=== PATIENT | female | born 1985 | race Caucasian/White ===

== ENCOUNTER 2022-12-28 07:01 | Outpatient (OUT) | payer BC, SELFPAY ==
[2022-12-28 07:40] LABS: Basophils Percent Auto 0.6 % (0.2-2.0); Eosinophils Absolute Auto 0.1 10^3/uL (0.0-0.7); Eosinophils Percent Auto 2.7 % (0.9-7.0); Hemoglobin 12.3 g/dL (12.0-16.0); Immature Granulocytes Abs Auto 0.02 10^3/uL (0.00-0.03); Immature Granulocytes Pct Auto 0.4 % (0.0-0.5); Lymphocytes Absolute Auto 1.9 10^3/uL (1.2-3.8); Lymphocytes Percent Auto 35.2 % (20.5-60.0); Mean Corpuscular HGB Conc 33.2 g/dL (29.9-35.2); Mean Corpuscular Hemoglobin 29.2 pg (26.7-34.0); Mean Corpuscular Volume 87.9 fL (81.0-99.0); Mean Platelet Volume 12.1 fL (9.5-13.5); Monocytes Absolute Auto 0.6 10^3/uL (0.3-0.8); Monocytes Percent Auto 10.5 % (1.7-12.0); Neutrophils Absolute Auto 2.7 10^3/uL (1.4-6.5); Neutrophils Percent Auto 50.6 % (43.0-75.0); Platelet Count 175 10^3/uL (150-450); Red Blood Count 4.21 10^6/uL (4.20-5.40); Red Cell Distribution Width 12.9 % (11.0-15.0); White Blood Count 5.3 10^3/uL (4.0-11.0)
[2022-12-28 07:48] LABS: Estimated Average Glucose 105 mg/dL; Glycohemoglobin A1C 5.3 % (4.5-6.2)
[2022-12-28 08:36] LABS: Alanine Aminotransferase 27 U/L (14-59); Albumin Globulin Ratio 1.3; Albumin Level 4.1 g/dL (3.4-5.0); Alkaline Phosphatase 29 U/L (46-116); Anion Gap 9.3; Aspartate Amino Transferase 13 U/L (15-37); Bilirubin Total 0.6 mg/dL (0.2-1.0); Calcium 8.8 mg/dL (8.5-10.1); Carbon Dioxide 28.1 mmol/L (21.0-32.0); Chloride 104 mmol/L (98-107); Chol HDL Ratio 2.1; Cholesterol 161 mg/dL (<=200); Estimated GFR (African America >60 (>=60); Estimated GFR (Non-African Ame >60 (>=60); Globulin 3.2 g/dL; Glucose 115 mg/dL (74-106); HDL Cholesterol 76 mg/dL (40-60); Potassium 4.4 mmol/L (3.5-5.1); Sodium 137 mmol/L (136-145); Thyroid Stimulating Hormone 0.891 uIU/mL (0.358-3.740); Total Protein 7.3 g/dL (6.4-8.2); Triglycerides 43 mg/dL (<=150); VLDL CHOLESTEROL 8.6 mg/dL
== END 2022-12-28 07:02 | disposition home or self-care (01) ==
LOC: LAB 07:05
PROVIDERS: PCP Family Medicine; Visit Provider Family Medicine
DX: Z00.00 Encounter for general adult medical examination without abnormal findings (principal)
CPT/HCPCS: 36415; 80053; 80061; 83036; 84443; 85025

== ENCOUNTER 2023-02-20 07:44 | Outpatient (OUT) | payer BC, SELFPAY ==
--- NOTE | 2023-02-20 07:46 | US_ITS ---
The [address] [address] Patient Name: JUANIS VILLEDA MRN: [id number] date: 1985 Sex: F Assigned Patient Location: Current Patient Location: US Accession/Order Number: [id number] Exam Date: 02/20/2023 07:48 Report Date: 02/20/2023 09:29 At the request of: TONEY SOUZA Procedure: US pelvis transvaginal PROCEDURE: US pelvis transvaginal, 02/20/2023 7:48 AM EDT CLINICAL INDICATIONS: Abnormal uterine bleeding. 2 para 2. LMP 01/25/2023. COMPARISON: None. TECHNIQUE: Transabdominal, transvaginal pelvic sonogram, ruelas-scale, color, and spectral evaluation. FINDINGS: Uterus: 8.2 x 5.4 x 5.0 cm. Endometrial echo complex 1.1 cm. Normal uterine sonographic morphology without focal abnormality. Right ovary: 3.3 x 2.2 x 2.0 cm, volume 8 mL. Normal sonographic morphology. Left ovary: 5.4 x 3.1 x 2.9 cm, volume 25 mL. A 2.2 x 1.9 x 1.7 cm complex cyst with thickened wall, crenulated margin, low level internal echoes is identified, mild peripheral vascularity. There is trace pelvic free fluid. US/US pelvis transvaginal IMPRESSION: 1. Normal uterine and right ovarian sonographic morphology. 2. Complex 2.2 cm left adnexal cyst. Complex corpus luteal cyst is favored. 6-12 week follow-up sonography needed. 3. Trace pelvic free fluid. Electronically authenticated by: TRAVIS ORO Date: 02/20/2023 09:29
== END 2023-02-20 07:45 | disposition home or self-care (01) ==
LOC: US 07:44
PROVIDERS: PCP Family Medicine; Visit Provider Obstetrics & Gynecology
DX: N92.0 Excessive and frequent menstruation with regular cycle (principal); N83.292 Other ovarian cyst, left side
CPT/HCPCS: 76830

== ENCOUNTER 2023-07-30 07:55 | Outpatient (OUT) | payer BC, SELFPAY ==
--- NOTE | 2023-07-30 07:56 | VEIN_ITS ---
Patient Name: JUANIS VILLEDA MR#: [id number] : 1985 Exam Date: 07/30/2023 Ordering Doctor: DR BRIANNA TUBBS M.D. RADIOLOGY REPORT PROCEDURE: VC EXT VENOUS REFLUX PAULA LMTD COMPARISON: None. INDICATIONS: I83.813 Bilateral painful varicose veins TECHNIQUE: Duplex imaging of the lower extremity to assess the deep and superficial venous system for the presence of deep or superficial venous incompetence and to document the location and severity of disease. The study includes evaluation of the great saphenous vein (GSV), anterior accessory saphenous vein (AASV) and small saphenous vein (SSV). Patient scanned in reverse Trendelenburg and standing. FINDINGS: RIGHT LOWER EXTREMITY: Saphenofemoral Junction Reflux: Yes 8.0mm 2.1 sec GSV: Diam (mm) Reflux/ Time (sec) Proximal Thigh 6.2 Yes 0.8 Mid Thigh 4.6 Yes 0.5 Distal Thigh 4.3 Yes 0.5 Prox Calf 2.7 Yes 0.6 Mid Calf N/A Saphenopopliteal Junction Reflux: 2.6mm No SSV: Proximal Calf 1.3 N/A Mid Calf 2.3 AASV: Not present Proximal Thigh Mid Thigh Distal Thigh Thrombi: No acute or chronic thrombus visualized Compressibility: Normal Flow: Normal Preforator: No perforators visualized. Tech Note: Incompetent GSV. Patent varicose vein mid/med thigh 2.7mm with 1.1s reflux. LEFT LOWER EXTREMITY: Saphenofemoral Junction Reflux: Yes 5.9 mm 0.6 sec GSV: Diam (mm) Reflux/Time (sec) Proximal Thigh 4.7 No Mid Thigh 2.4 No Distal Thigh 1.4 No Prox Calf N/A Mid Calf N/A Saphenopopliteal Junction Relux: 6.4 mm Yes 1.1 SSV: Proximal Calf 6.0 Yes 1.0 Mid Calf 2.1 Yes AASV: Not present Proximal Thigh Mid Thigh Distal Thigh Thrombi: No acute or chronic thrombus visualized Compressibility: Normal Flow: Normal Paleobotanist: Dist/med calf 2.3mm with 0s reflux. Tech Note: Incompetent SSV. CONCLUSION: 1. Mild dilation and reflux involving the right great saphenous vein and left small saphenous vein. Dictated by: Trino Guevara M.D. on 07/30/2023 at 08:55 Approved by: Trino Guevara M.D. on 07/30/2023 at 10:44
--- NOTE | 2023-07-30 07:56 | VEIN_ITS ---
Patient Name: JUANIS VILLEDA MR#: [id number] : 1985 Exam Date: 07/30/2023 Ordering Doctor: DR BRIANNA TUBBS M.D. RADIOLOGY REPORT PROCEDURE: [facility] - OFFICE VISIT INITIAL COMPARISON: None. PROGRESS NOTES: [age] year old female who presents with a 7 year history of bulging dilated veins, leg pain, throbbing, swelling, heaviness. The patient's left leg symptoms are worse than the right. There has been a progression of symptoms over time. This increases with prolonged leg dependency. The patient describes an improvement with rest and elevation. The patient denies any signs and symptoms to suggest arterial ischemia. The patient describes a family history of varicose veins on maternal and paternal side. The patient has drinking and smoking history of occasional alcohol consumption; no tobacco use. Patient has a past medical history significant for : None other than current symptoms described above. The patient denies a history of deep venous thrombus or pulmonary embolus. See separate history and physical for medication list. No prior treatment for varicose or spider veins. Occasional use of compression stockings. After review of nurse notes, history and physical exam I discussed at length the pathophysiology of venous hypertension and possible treatments, therapies and strategies available. We discussed at length the importance of elevating the lower extremities above the level of the heart, increased physical activity and compression stocking use. Ultrasound venous reflux study performed today was discussed at length with the patient. The report demonstrates mildly dilated an incompetent proximal right great saphenous vein and proximal left small saphenous vein.. PHYSICAL EXAM: The right leg demonstrates several superficial varicosities varicosities, no significant spider veins, no ulceration, no edema, no skin discoloration. The left leg demonstrates several superficial varicosities, a few spider veins, no ulceration, no edema, no skin discoloration. Both thighs, legs and feet were symmetrically warm to the touch. Good posterior tibial and dorsalis pedis pulses were present bilaterally. VEIN/VC Facility EST Comprehensive IMPRESSION: 1. Mild bilateral lower extremity venous insufficiency 2. Several lower extremity varicose veins 3. No significant lower extremity subcutaneous edema 4. No flow significant arterial disease 5. CEAP: C2, AP, , NV PLAN: 1. Continued use of compression stockings 2. Elevated legs and increased physical activity symptomatic relief 3. Daily use of compression stockings with re-evaluation of symptoms by the patient in 2-3 months. Patient will contact us if treatment is desired at that time. Nurse notes, history and physical were reviewed and confirmed, see attached forms. The nurse was present throughout the physical exam and consultation Dictated by: Trino Guevara M.D. on 07/30/2023 at 10:44 Approved by: Trino Guevara M.D. on 07/30/2023 at 10:52
== END 2023-07-30 07:56 | disposition home or self-care (01) ==
LOC: VC 07:55
PROVIDERS: PCP Radiology Diagnostic Radiology; Visit Provider Radiology Diagnostic Radiology
DX: I83.813 Varicose veins of bilateral lower extremities with pain (principal)
CPT/HCPCS: 93970; G0463

== ENCOUNTER 2023-12-07 06:28 | Outpatient (OUT) | payer BC, SELFPAY ==
--- OUTSIDE RECORDS SUMMARY | 2023-12-07 06:33 | XMS_ITS | CCD ---
Author Organization [facility] Care Team Providers Care Make Up Girl Name Role Phone BRIANNA MARCUS Unavailable Unavailable HEIDI WHALEY Unavailable Unavailable ROSEANNE, DR REED Admitting Unavailable ROSEANNE, DR REED Attending Unavailable ROSEANNE, DR REED Primary Care Unavailable West, DR Reed Consulting Unavailable ROSEANNE, DR REED Consulting Unavailable CHRIS KILLIAN Admitting Unavailable CONSTANTIN, CHRIS Attending Unavailable CHRIS KILLIAN Consulting Unavailable Brianna Marcus Attending Unavailable Brianna Marcus Primary Care Unavailable Problems Active Problems Problem Classification Problem Date Documented Da te Episodic/Chronic Administrative/social admission (4 sources) Encounter for pre-employment examination; Translations: [ENCOUNTER FOR PRE-EMPLOYMENT EXAM] Onset: 01-09-2022 Episodic Thyroid disorders (4 sources) Nontoxic single thyroid nodule; Translations: [NONTOXIC SINGLE THYROID NODULE] Onset: 10-17-2021 Chronic Past or Other Problems Problem Classification Problem Date Documented Da te Episodic/Chronic Unclassified (1 source) Family history of other specified conditions; Translations: [Family history of other specified conditions] Onset: 06-28-2017 Episodic Results Test Name Value Interpretation Reference Range Facility Outside [facility] 10-14-2023 Outside Records [id number]-10[facility]23 Outside [facility] [id number] Outside Records [id number]#[facility] 02-01-2023 Outside Records [id number]#1.00OTGTIFF Normal [facility] Office/Clinic Noteon 023 Office/Clinic Note Patient: JUANIS VILLEDA Age: 37 years Sex: FEMALE : 1985 Associated Diagnoses: Adult general medical exam Author: Brianna Marcus MD A History of Present Illness 37-year-old female presents today with annual physical exam. She recently had blood work which was reviewed by her employer. She is currently not on any medications. She remains active. 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 Eats well. Sleeps well. 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 Otherwise no other issues or concerns. Chart was reviewed. Review of Systems Constitutional: Negative. Ear/Nose/Mouth/Throat: Negative. Respiratory: Negative. Cardiovascular: Negative. Gastrointestinal: Negative. Musculoskeletal: Negative. Integumentary: Negative. Neurologic: Negative. Psychiatric: Negative. Health Status Allergies: Allergic Reactions (Selected) No known allergies, Allergies (1) Active Severity Reaction No known allergies None Documented Current medications: (Selected) Documented Medications Documented Multi Vitamin+: See Instructions, 2 gummie tabs po daily, 0 Refill(s), Home Medications (1) Active Multi Vitamin+ See Instructions Problem list (past medical history): Active Problems (1) Denied Physical Examination VS/Measurements Vital Signs 01/28/2023 9:20 EDT Peripheral Pulse Rate 90 bpm Systolic Blood Pressure 102 mmHg Diastolic Blood Pressure 78 mmHg SpO2 99 % , Measurements from flowsheet : Measurements 01/28/2023 9:20 EDT Height 162.56 cm Height/Length Measured (inches) 64 in Weight 60.60 kg Weight Measured (lbs) 133.6 lb Body Mass Index 22.93 kg/m2 [place] Body Weight Calculated 54.7 kg BSA Measured 1.65 m2 General: Alert and oriented, No acute distress. HENT: Normocephalic, Tympanic membranes are clear, Normal hearing. Neck: Non-tender, No carotid bruit, No jugular venous distention, No lymphadenopathy. Respiratory: Lungs are clear to auscultation, Respirations are non-labored, Breath sounds are equal. Cardiovascular: Normal rate, Regular rhythm, No murmur, Good pulses equal in all extremities. Gastrointestinal: Soft, Non-tender, Non-distended, Normal bowel sounds, No organomegaly. Musculoskeletal: Normal range of motion, Normal strength, No tenderness, Normal gait. Neurologic: Alert, Oriented, Normal sensory, Normal motor function, No focal deficits. Cognition and Speech: Oriented, Speech clear and coherent, Functional cognition intact. Psychiatric: Cooperative, Appropriate mood & affect. Impression and Plan Diagnosis Adult general medical exam (CNE30-NW Z00.00). Plan: Chart was reviewed. Discussed safety issues appropriate for age. Encouraged to remain active. No other changes made. Continue follow-up yearly.. Orders Orders Evaluation and Management: 11533 Periodic preventive care, estab pt; 18-39 years (Order): 01/28/2023 9:15 EDT, Qty: 1, Adult general medical exam. [Electronically Signed on: 01/28/2023 10:03 EDT] Brianna Marcus MD [Verified on: 01/28/2023 10:03 EDT] Brianna Marcus MD [facility] Outside Record[facility] 12-31-2022 Outside Records [id number]#1.00OTGTIFF [facility] QUANTIFERON TB GOLD PLUSon 0 01-13-2022 QuantiFERON Criteria Comment Normal [facility] Comment on above: Result Comment: QuantiFERON-TB Gold Plus is a qualitative indirect test for M tuberculosis infection (including disease) and is intended for use in conjunction with risk assessment, radiography, and other medical and diagnostic evaluations. The QuantiFERON-TB Gold Plus result is determined by subtracting the Nil value from either TB antigen (Ag) value. The Mitogen tube serves as a control for the test. Performed By: #### Q NTTB #### [facility] [address] [place] [address] Dr. Bryce Hillman QuantiFERON Incubation Incubation performed. Normal [facility] Comment on above: Performed By: #### QNTTB #### [facility] [address] [place] [address] Dr. Bryce Hillman QuantiFERON Mitogen Value >10.00 Normal [facility] Comment on above: Performed By: #### QNTTB #### [facility] [address] [place] [address] Dr. Bryce Hillman QuantiFERON Nil Value 0.64 IU/mL Normal [facility] Comment on above: Performed By: #### QNTTB #### [facility] [address] [place] [address] Dr. Bryce Hillman QuantiFERON TB1 Ag Value 0.49 IU/mL Normal [facility] Comment on above: Performed By: #### QNTTB #### [facility] [address] [place] [address] Dr. Bryce Hillman QuantiFERON TB2 Ag Value 0.41 IU/mL Normal [facility] Comment on above: Performed By: #### QNTTB #### [facility] [address] [place] [address] Dr. Bryce Hillman QuantiFERON-TB Gold Plus Negative Normal Negative [facility] Comment on above: Result Comment: No response to M tubercu losis antigens detected. Infection with M tuberculosis is unlikely, but high risk individuals should be considered for additional testing (ATS/IDSA/CDC Clinical Practice Guidelines, 2017). The reference range is an Antigen minus Nil result of <0.35 IU/mL. Chemiluminescence immunoassay methodology Performed By: #### Q NTTB #### [facility] [address] [place] [address] Dr. Bryce Hillman HEPATITIS B SURFACE ANTIBODY , QUANTon 01-10-2022 Hepatitis B Surf AB Quant 25.9 mIU/mL Normal Immunity>9.9 [facility] Comment on above: Result Comment: Status of Immunity Anti- HBs Level Inconsistent with Immunity 0.0 - 9.9 Consistent with Immunity >9.9 Performed By: #### H EPBSRF #### [facility] [address] [place] [id number] [address] Bryce Hillman MMR IMMUNITYon 01-10-2022 Mumps Abs, IgG <9.0 Critically low Immune >10.9 [facility] Comment on above: Result Comment: Negative <9.0 Equivocal 9.0 - 10.9 Positive >10.9 A positive result generally indicates past exposure to Mumps virus or previous vaccination. Performed By: #### M MRIMMU #### [facility] [address] [place] [address] Dr. Bryce Hillman Rubella Antibodies, IgG <0.90 Critically low Immune >0.99 [facility] Comment on above: Result Comment: Non-immune <0.90 Equivocal 0.90 - 0.99 Immune >0.99 Performed By: #### M MRIMMU #### [facility] [address] [place] [address] Dr. Bryce Hillman Rubeola Ab, IgG 26.4 AU/mL Normal Immune >16.4 [facility] Comment on above: Result Comment: Negative <13.5 Equivocal 13.5 - 16.4 Positive >16.4 Presence of antibodies to Rubeola is presumptive evidence of immunity except when acute infection is suspected. Performed By: #### M MRIMMU #### [facility] [address] [place] [address] Dr. Bryce Hillman VARICELLA IGG ABon Varicella Zoster IgG 758 index Normal Immune >165 [facility] Comment on above: Result Comment: Negative <135 Equivocal 135 - 165 Positive >165 A positive result generally indicates exposure to the pathogen or administration of specific immunoglobulins, but it is not indication of active infection or stage of disease. Performed By: #### V ARCEL #### [facility] [address] [place] [address] Dr. Bryce Hillman US THYROID FN ASP BXon 10-25 US THYROID FN ASP BX Begin Addendum #1 COLLECTED DATE/TIME: 10/20/2021, 16:08 EDT Final Diagnosis Report for [facility] [place] (A/B) RIGHT THYROID MID LOBE NODULE, ULTRASOUND GUIDED FINE NEEDLE ASPIRATION - BENIGN COMMENT: The specimen consists of colloid, occasional groups of bland follicular cells, and rare groups of Hurthle cells, consistent with benign colloid nodule. 10/23/[address] Marcus. Verified with Carlos Eduardo 10/24/2021 that report was present in the office. Original Report EXAMINATION: US THYROID FN ASP BX HISTORY: Thyroid nodule COMPARISON: No relevant comparison available. TECHNIQUE: After obtaining informed consent, ultrasound-guided fine needle aspiration was performed in the usual sterile manner. FINDINGS: IMAGING: Ultrasound. BIOPSY NEEDLE: 23-gauge 1.5 inch LOCATION: 1.2 cm right thyroid nodule SPECIMEN TYPE: 3 fine-needle aspirates. LOCAL ANESTHETIC: 3 cc 1% buffered lidocaine without epinephrine. COMPLICATIONS: None. LABORATORY: Prepared slide smears and washings for cell block evaluation. OTHER: Negative. PATHOLOGY: Pending. An addendum will be added when results are available. IMPRESSION: 1. Uneventful ultrasound guided fine needle aspiration (FNA) right thyroid nodule 2. Pathology results are pending. Normal [facility] 10-24-2020 L ------- Specimen: [id number] Received: 10/25/20 Status: RAMOS Al Num: [id number] Spec Type: Surgical Subm Dr: Brianna Marcus MD Tissues: A Skin-Other than Cyst, tag, debridement or plastic repair (BACK) Procedures: HE Stain, Gross/Micro L4 Patient Age/Sex Location Account Attending Physician Juanis Villeda Leonid 35/F [facility] [id number] Brianna Marcus MD SPEC NUM: [id number] RECD: 10/25/20 STATUS: RAMOS AL NUM: [id number] BOB: 10/24/20 [facility] [address]: Brianna Marcus MD ENTERED: 10/25/20 [facility] DR: Jorge Spain SPEC TYPE: Surgical DEPT: MAG GARCIA ORDERED: HE Stain, Gross/Micro L4 ORDERED: HE Stain, Gross/Micro L4 Pathological Diagnosis Skin, back, excision: - Intradermal nevus, extending to biopsy edges Clinical Information Irritated lesion on back Gross Description Received in formalin labeled with the patient's name, number and skin is a 1 cm cochran skin shave excised to a maximum depth of less than 0.1 cm. The skin surface demonstrates a 0.7 cm cochran, slightly raised and lobulated papule. The resection margin is inked blue and the fragment is serially sectioned. Entirely submitted in one cassette labeled A1. (SM/JS) Microscopic Description One glass slide with H E stained material has been examined. The microscopic findings support the above pathologic diagnosis. [id number] Specimen: [id number] Received: 10/25/20 Status: RAMOS Al Num: [id number] Spec Type: Surgical Subm Dr: Brianna Marcus MD Tissues: A Skin-Other than Cyst, tag, debridement or plastic repair (BACK) Procedures: HE Stain, Gross/Micro L4 Patient: Juanis Villeda [id number] (Continued) Signed (signature on file) Gus Hudson MD 10/28/20 [id number] [facility] CNPIngrid 07-13-2017 CNPN Telephone (VARINDER) ------RONALJUANIS ([id number]) 1985 FDate Time Provider Department07/13/17 ISMAEL GOODSON GC During your visit today, we recorded the following information about you:Carmelo Ellis Gc Assist 07/13/2017 8:41 AM SignedThe patient was contacted per the request of DERRICK Davis. The patienthad called inquiring about the status of her pre-authorization for genetictesting. At the time of the call, the pre-authorization was still pending.Ismael requested that I inquire if the patient would like to move forward withtesting even though the authorization is pending. Per Ismael's note, themaximum cost for the genetic test is $258 which was conveyed to the patient.The patient would like to move forward with testing and is aware that if herinsurance does not approve genetic testing, that she may be billed $258 for thetest.Carmelo Ellis MSGenetic Counselor Sloan Goodson MS [facility] 07/27/2017 10:38 AM SignedI called and left a detailed message (permission granted at her priorappointment) on Juanis's voicemail regarding our request for insuranceauthorization for SCA6 testing. Despite our attempt to appeal, her insurancecompany is denying authorization for this analysis. This means that Juaniswill be responsible for the cost of testing ($258) out of pocket. We havealready discussed that Juanis would like to proceed with this testingregardless of insurance authorization, as confirmed by JASWANT Rodríguez, on07/13/17. I will request that Almas DNA be sent to [facility] foranalysis. I will notify Juanis when results are received. I encouraged Juanisto contact me if she had any questions.Ismael Goodson MS, Paz Goodson MS CGC 07/27/2017 10:53 AM SignedAddended by: ISMAEL GOODSON CGC on: 07/27/2017 10:53 AM Modules accepted: OrdersAllergies As of Date: 07/13/2017(No Known Allergies)Date Reviewed: 05/06/2005Reviewed by: Carli More (Rn) FRANCINE Ferris - ReviewedReason for Visit: Insurance Authorization [[id number]]Primary Visit Diagnosis:Family history of spinocerebellar ataxia [Z84.89]Order(s):DNA AND RNA FOR CLINICAL TESTING [SQNUCADD] Order #: [id number] List As Of Date: 07/13/2017(None) Status:Closed by CARMELO GIPSON GC on 07/13/17 [facility] CNOVon 06-28-2017 CNOV Office Visit (GMIT) -----JUANIS VILLEDA ([id number]) 1985 FDate Time Provider Department06/28/17 12:00 PM ISMAEL GOODSON) GMIT During your visit today, we recorded the following information about you:Ismaeljim Goodson, [facility] 07/02/2017 9:43 AM SignedPatient Name and confirmed at initiation of visit.Dr. Brianna Marcus requested a genetic consultation for Juanis Villeda, a31 year old female, for discussion of her family history of spinocerebellarataxia type 6. Prior to the visit, the genetic counselor reviewed records inthe patient's EMR including, but not limited to, available clinic notes,physician consultations, laboratory tests, imaging reports, cardiac studies,and other investigations and evaluations. The genetic counselor also reviewedthe case with Dr. Whaley as needed prior to seeing the patient.The patient was accompanied to today's appointment by her , Erwin.HISTORY OF PRESENT CONDITION:Juanis Villeda presents today to discuss her family history ofspinocerebellar ataxia, type 6, recently diagnosed in her father. In reviewingsigns and symptoms of SCA6, Juanis denies any history of all of the following:ataxia, dysarthria, nystagmus, upper limb incoordination, intention tremor,dysphagia, diplopia, hyperreflexia, dystonia, and blepharospasm.PERTINENT PAST MEDICAL AND SURGICAL HISTORY INCLUDES:Past medical history:- bone cysts in jawPast surgical history:- LASIK- bone cyst removal left heelRELEVANT EVALUATIONS TO DATE:n/aPREVIOUS GENETIC TESTING:None.SOCIAL HISTORY:Lives in [place], [place] with her and two daughters.Employment: [employer] and alcohol use: tobacco- denied; EtOH- beer with dinner daily; illicitdrug use- denied.FAMILY HISTORY:- Patient's ethnicity: Maternal - Maltese, ; Paternal - Uruguayan.- Partner's ethnicity: not applicable.- No known -Sao Tomean, Mediterranean, /Lebanese,Yemeni-Canadia n/Cajun, or Ashkenazi Temple ancestry unless noted above.- Parental consanguinity: Shonna 4 generation pedigree was collected [facility]. Pertinent findings are noted below.Children: two daughters, ages 4yo and 1yo, both healthy. One first trimesterSAb..Full siblings: one brother, age 26, healthy.Half siblings: none.Parental losses: none reported.Mother: 55 years old. Healthy.Maternal aunts and their children: none.Maternal uncles and their children: one uncle, age 50, healthy; he has ahealthy 15yo daughter.Maternal grandmother: age 83; h/o dementia (onset in her late 60s).Maternal grandfather: age 84, no known health problems.Father: 56 years old. Molecularly confirmed spinocerebellar ataxia, type 6.Paternal aunts and their children: three half aunts- 1) daughter ofgrandmother, age 50, healthy; she has two healthy daughters and had 3 SAbs's.2) daughter of grandfather, gait issues. 3) daughter of grandfather, healthy.Paternal uncles and their children: three half uncles, sons of grandfather, noinformation known.Paternal grandmother: age 76, healthy.Paternal grandfather: in his 50s/60s; h/o gait abnormality.The remainder of Juanis's reported family history is negative for known orsuspected genetic disease, defects, malformation syndromes, chromosomaldisorders, metabolic disorders, developmental delay, mental retardation,infertility, recurrent loss, stillbirth, unexplained infant ,and consanguinity.GENETIC COUNSELING RISK ASSESSMENT AND DISCUSSION:Juanis Villeda is a 31 year old female with a family history ofspinocerebellar ataxia type 6 (SCA6). We discussed the natural history andgenetic etiology of SCA6 in detail. SCA6 is characterized by adult-onset,slowly progressive cerebellar ataxia, dysarthria (slurred or slow speech), andnystagmus (condition in which the eyes make repetitive, uncontrolled movementswhich often result in reduced vision and depth perception and can affectbalance and coordination). The range in age of onset is from 19 to 71 years,with the mean age of onset being between 43 and 52 years. Age of onset andclinical presentation can vary even within the same family. Initial symptoms inabout 90% of individuals with SCA6 include gait unsteadiness, stumbling, andimbalance; the other 10% of individuals present with dysarthria. Symptoms areslowly progressive. Eventually, individuals with SCA6 develop gait ataxia,upper limb incoordination, intention tremor, and dysarthria. Dysphagia andchoking are common. Diplopia (or double vision) occurs in about 50% ofindividuals with SCA6. Some people experience other visual disturbances relatedto difficulty fixating on moving objects; the vast majority of people with KHA3vctxweyjau nystagmus. Hyperreflexia (or overactive reflexes) occurs in up to50% of individuals. Up to 25% of individuals experience dystonia (persistent orintermittent muscle contractions causing abnormal, often repetitive, movements,postures, or both) and/or blepharospasm (uncontrolled contraction of themuscles in the eyelids). Cognitive impairment is not associated with SCA6, andlifespan is not shortened. Once the diagnosis of SCA6 is made, individualsshould consider the following evaluations: neurologic examination, MRI of thebrain, swallow study, and evaluation with physical therapy.Management/treatmen t of SCA6 is supportive and symptom-based; there is no curefor SCA6.?Our genes are like instructions that tell our body how to form and function. Wehave two copies of each gene in our body- we inherit one copy from our motherand one copy from our father. Changes in our genes are known as mutations;mutations can be benign or disease-causing (pathogenic). Pathogenic mutationsin the OZWYE0O gene are associated with SCA6. SCA6 is known as a triplet repeatdisorder. Within the TUHJW2O gene, there is an area with a repetitiveANDquot;CAGANDquo t; sequence. It is normal for there to be variation in the numberof CAG repeats between individuals. However, if the number of CAG repeatscrosses a certain threshold, individuals may develop symptoms of SCA6. Forexample, individuals with 18 or less CAG repeats in the FEUVV7Z gene are saidto have a normal allele (or copy of the gene) and show no signs of SCA6.Individuals with 19 CAG repeats are said to have an ANDquot;intermediateANDquot ; orANDquot;mutable normal alleleANDquot; as individuals tend to be asymptomatic butare at risk to pass an expanded allele on to their offspring. Individuals vdno46-56 CAG repeats are expected to develop symptoms of SCA6 at some point duringtheir life. Juanis's father's results show that he has 22 CAG repeats in theCACNA1 gene, confirming his diagnosis of SCA6; 22 CAG repeats is considered marisa the most common pathogenic allele for SCA6. The age of onset is thought marisa inversely correlated to the number of repeats and affected individual has;the greater the number of repeats, the earlier the age of onset. However, it isimportant to keep in mind that the age of onset, severity, specific symptoms,and progression of the disease are variable and cannot always be predicted bythe family history of CAG repeat size.?SCA6 is inherited in an autosomal dominant manner. This means that an expandedCAG repeat (20 or more repeats) in one copy of the GGIFP0A gene is enough tocause symptoms of SCA6. Individuals with SCA6 have a 50% chance to pass thecondition on to each of their children; as such, there is a 50% chance thatJunais has inherited her father's expanded XSCFI2K allele. Juanis has electedto proceed with predictive testing for spinocerebellar ataxia type 6.We also discussed Juanis's maternal grandmother's history of Alzheimer'sdisease, with onset of dementia in her late 60s. We reviewed that 75% of casesof Alzheimer's disease are sporadic, while 25% are familial. Of the 25% ofcases that are considered to be familial, 95% are known as late onset (withsymptoms beginning after age 60-65) and only 5% are considered to be earlyonset (with symptoms beginning before age 65). Juanis's grandmother'sdiagnosis in her late 60s falls right on the cusp of early versus late onset.The general population risk of Alzheimer's disease throughout the lifetime is10%. For someone with a family history of Alzheimer's disease in a first degreerelative, the lifetime risk is increased to 20-25%; therefore, Almasmother's risk for Alzheimer's disease is 20-25%. If Juanis's mother isinterested in learning more about her risk for early onset Alzheimer's disease,she is encouraged to meet with a genetic counselor as some forms of early onsetAlzheimer's disease can be inherited from an affected parent. There is nogenetic testing currently available that can determine whether someone with afamily history of late onset Alzheimer's disease will develop symptoms of thecondition in their own lifetime.FOLLOW-UP PLAN:1) I will submit a request for pre-authorization for SCA6 testing; the cost ofthis testing is $258 dollars. I will notify Juanis when a response isreceived. Regardless of outcome of pre-authorization request, Juanis intendsto proceed with this testing. She states that a detailed message can be left onher voicemail.2) An order for DNA extraction has been placed for testing.EDUCATIONAL INFORMATION SUPPLIED TO PATIENT: None.The patient was seen for a total of 48 minutes, greater than 50% of which wasspent [id number] counseling. This plan is being carried out per Dr. Whaley'srecommendations. This note will also be sent to the referring provider andpatient.Ismael Goodson MS, CLicediamond children's medical center Genetic CounselorEPIC CC:Dr. Alisa Luke, medical secretaryCC:Juanisaicha Villeda56[address] [facility] [address]Tlnqkanushka Marcus MD[address] [facility] [place] [address]Msnmrrigi Provider: BRIANNA MARCUS [[id number]]Allergies As of Date: 06/28/2017(No Known Allergies)Date Reviewed: 05/06/2005Reviewed by: Carli More (Rn) FRANCINE Ferris - ReviewedPrimary Visit Diagnosis:Family history of spinocerebellar ataxia [Z84.89]Order(s):DNA EXTRACTION (BUFFY COAT) [SQNUCBUF] Order #: [id number] FUTUREProblem List As Of Date: 06/28/2017(None)Follow-up and Disposition History RecordedEncounter Number: [id number] Status:Closed by ISMAEL GOODSON CGC on 07/02/17 Normal [facility] DNA Extraction (Buffy)on DNA Extration BC (NOTE) Normal [facility] Comment on above: Result Comment: This specimen was receiv ed and successfully processed for future DNApurification should molecular testing be needed. Specimens will beavailable for 3 years from the date of collection.To order testing on this specimen for [facility] patients,please place an [facility] order for DNA and RNA Extractions for ClinicalTesting (SQNUCADD). To order testing for [facility] the[facility], please request DNA and RNA Extraction forClinical Testing, order code [id number].If additional paperwork is required for testing, please sendcompleted forms via secure email to . Performed By: #### N UCBUF ####[facility], [place] [phone] DNA,RNA Ext Clin Teston 06-08 DNA,RNA Ext Clin Test (NOTE) Normal [facility] Comment on above: Result Comment: Required Specimen: DNAOr iginal Specimen Type: PERIPHERAL BLOODOriginal Specimen Collection: 06/28/17Total Yield (ug):56.1Extraction Method: GENTRAComments: The entire specimen will be sent for the requested testing. Performed By: #### N UCADD ####[facility], [place] [phone] [facility] Send Out Teston 018 Test SPINOCEREBELLAR Normal [facility] Comment on above: Performed By: #### WILD13 ####[facility] [address], [place] [phone] Test Results View results in Scan carol Documents link when available. Normal [facility] Comment on above: Performed By: #### WILD13 ####[facility] [address], [place] [phone] PROGRESSon 06-28-2017 PROGRESS HNO ID: [id number] thor: Ismael () PalangeService: (none)Author Type: Genetic CounselorType: Progress NotesFiled: 07/02/2017 9:43 AMNote Text:Patient Name and confirmed at initiation of visit.Dr. Brianna Marcus requested a genetic consultation for Juanis Oliveira, a 31 year old female, for discussion of her family history ofspinocerebellar ataxia type 6. Prior to the visit, the genetic counselorreviewed records in the patient's EMR including, but not limited to,available clinic notes, physician consultations, laboratory tests, imagingreports, cardiac studies, and other investigations and evaluations. Thegenetic counselor also reviewed the case with Dr. Whaley as needed prior toseeing the patient.The patient was accompanied to today's appointment by her , Erwin.HISTORY OF PRESENT CONDITION:Juanis Villeda presents today to discuss her family history ofspinocerebellar ataxia, type 6, recently diagnosed in her father. 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 Pertinent findings are noted below.Children: two daughters, ages 4yo and 1yo, both healthy. One firsttrimester SAb..Full siblings: one brother, age 26, healthy.Half siblings: none.Parental losses: none reported.Mother: 55 years old. Healthy.Maternal aunts and their children: none.Maternal uncles and their children: one uncle, age 50, healthy; he has ahealthy 15yo daughter.Maternal grandmother: age 83; h/o dementia (onset in her hafc87g).Maternal grandfather: age 84, no known health problems.Father: 56 years old. Molecularly confirmed spinocerebellar ataxia, type6.Paternal aunts and their children: three half aunts- 1) daughter ofjennifredmother, age 50, healthy; she has two healthy daughters and had 3SAbs's. 2) daughter of grandfather, gait issues. 3) daughter ofbeau, healthy.Paternal uncles and their children: three half uncles, sons ofbeau, no information known.Paternal grandmother: age 76, healthy.Paternal grandfather: in his 50s/60s; h/o gait abnormality.The remainder of Juanis's reported family history is negative for knownor suspected genetic disease, defects, malformation syndromes,chromosomal disorders, metabolic disorders, developmental delay, mentalretardation, infertility, recurrent loss, stillbirth,unexplained infant , and consanguinity.GENETIC COUNSELING RISK ASSESSMENT AND DISCUSSION:Juanis Villeda is a 31 year old female with a family history ofspinocerebellar ataxia type 6 (SCA6). We discussed the natural history andgenetic etiology of SCA6 in detail. SCA6 is characterized by adult-onset,slowly progressive cerebellar ataxia, dysarthria (slurred or slow speech),and nystagmus (condition in which the eyes make repetitive, uncontrolledmovements which often result in reduced vision and depth perception andcan affect balance and coordination). The range in age of onset is from 19to 71 years, with the mean age of onset being between 43 and 52 years. Ageof onset and clinical presentation can vary even within the same family.Initial symptoms in about 90% of individuals with SCA6 include gaitunsteadiness, stumbling, and imbalance; the other 10% of individualspresent with dysarthria. Symptoms are slowly progressive. Eventually,individuals with SCA6 develop gait ataxia, upper limb incoordination,intention tremor, and dysarthria. Dysphagia and choking are common.Diplopia (or double vision) occurs in about 50% of individuals with SCA6.Some people experience other visual disturbances related to difficultyfixating on moving objects; the vast majority of people with GNX5ugzicmdoql nystagmus. Hyperreflexia (or overactive reflexes) occurs in upto 50% of individuals. Up to 25% of individuals experience dystonia(persistent or intermittent muscle contractions causing abnormal, oftenrepetitive, movements, postures, or both) and/or blepharospasm(uncontrolled contraction of the muscles in the eyelids). Cognitiveimpairment is not associated with SCA6, and lifespan is not shortened.Once the diagnosis of SCA6 is made, individuals should consider thefollowing evaluations: neurologic examination, MRI of the brain, swallowstudy, and evaluation with physical therapy. Management/treatment of SCA6is supportive and symptom-based; there is no cure for SCA6.?Our genes are like instructions that tell our body how to form andfunction. We have two copies of each gene in our body- we inherit one copyfrom our mother and one copy from our father. Changes in our genes areknown as mutations; mutations can be benign or disease-causing(pathogenic) . Pathogenic mutations in the LVLTS1H gene are associated withSCA6. SCA6 is known as a triplet repeat disorder. Within the PSTIY8P gene,there is an area with a repetitive CAG sequence. It is normal for thereto be variation in the number of CAG repeats between individuals. However,if the number of CAG repeats crosses a certain threshold, individuals maydevelop symptoms of SCA6. For example, individuals with 18 or less CAGrepeats in the ODTUG3P gene are said to have a normal allele (or copy ofthe gene) and show no signs of SCA6. Individuals with 19 CAG repeats aresaid to have an intermediate or mutable normal allele as individualstend to be asymptomatic but are at risk to pass an expanded allele on totheir offspring. Individuals with 20-33 CAG repeats are expected todevelop symptoms of SCA6 at some point during their life. Almasfamanuel's results show that he has 22 CAG repeats in the CACNA1 gene,confirming his diagnosis of SCA6; 22 CAG repeats is considered to be themost common pathogenic allele for SCA6. The age of onset is thought to beinversely correlated to the number of repeats and affected individual has;the greater the number of repeats, the earlier the age of onset. However,it is important to keep in mind that the age of onset, severity, specificsymptoms, and progression of the disease are variable and cannot always bepredicted by the family history of CAG repeat size.?SCA6 is inherited in an autosomal dominant manner. This means that anexpanded CAG repeat (20 or more repeats) in one copy of the VVONB0H geneis enough to cause symptoms of SCA6. Individuals with SCA6 have a 50%chance to pass the condition on to each of their children; as such, thereis a 50% chance that Juanis has inherited her father's expanded [id number]. Juanis has elected to proceed with predictive testing forspinocerebellar ataxia type 6.We also discussed Juanis's maternal grandmother's history of Alzheimer'sdisease, with onset of dementia in her late 60s. We reviewed that 75% ofcases of Alzheimer's disease are sporadic, while 25% are familial. Of the25% of cases that are considered to be familial, 95% are known as lateonset (with symptoms beginning after age 60-65) and only 5% are consideredto be early onset (with symptoms beginning before age 65). Adilsonandmother's diagnosis in her late 60s falls right on the cusp of earlyversus late onset. The general population risk of Alzheimer's diseasethroughout the lifetime is 10%. For someone with a family history ofAlzheimer's disease in a first degree relative, the lifetime risk isincreased to 20-25%; therefore, Juanis's mother's risk for Alzheimer'sdisease is 20-25%. If Juanis's mother is interested in learning moreabout her risk for early onset Alzheimer's disease, she is encouraged tomeet with a genetic counselor as some forms of early onset Alzheimer'sdisease can be inherited from an affected parent. There is no genetictesting currently available that can determine whether someone with afamily history of late onset Alzheimer's disease will develop symptoms ofthe condition in their own lifetime.FOLLOW-UP PLAN:1) I will submit a request for pre-authorization for SCA6 testing; thecost of this testing is $258 dollars. I will notify Juanis when aresponse is received. Regardless of outcome of pre-authorization request,Juanis intends to proceed with this testing. She states that a detailedmessage can be left on her voicemail.2) An order for DNA extraction has been placed for testing.EDUCATIONAL INFORMATION SUPPLIED TO PATIENT: None.The patient was seen for a total of 48 minutes, greater than 50% of whichwas spent ajed-kz-dgey counseling. This plan is being carried out per 's recommendations. This note will also be sent to the referringprovider and patient.Ismael Goodson MS, CLicediamond children[facility] medical center Genetic CounselorEPIC CC:Dr. Alisa Luke, medical secretaryCC:Juanis Villeda56[address] [facility] [address]Pgjieanushka Marcus MD6[address] [facility] [phone] Normal [facility] CNCOon 06-14-2017 CNCO Letter TextDear Janey Villeda:How to activate your [facility] [employer] Account 1. Visit the [employer] Signup page at [email or web address] 2. Identify yourself using your one-time use activation code: [email or web address] 3. Follow the on-screen prompts to choose your own secure username andpasswordThe following information will be necessary to access your account for thefirst time:Information needed for sign-up:Your custom activation code used one-time only for the initial accountset-up.Your date of birthThe last 4 digits of your social security numberWhat to do next:Fill in the requested information on the Identify Yourself Form [email or web address] , click Next.Create your login and password, choose a [employer] ID and password that will beeasy for you to use, but impossible for anyone else to guess.Pick a security question that will assist you in the event you forget yourpassword the next time you log-on.If you have difficulty activating your account, please call our [employer] at [phone] or toll free at .We hope you enjoy using [employer]!Kindest Regards,[facility] [employer] Team Normal [facility] Encounters Encounter Date Encounter Type Care Provider Facility Start: 01-28-2023 End: 01-29-2023 ambulatory Brianna Marcus Facility:[facility] Start: 01-09-2022 End: 01-09-2022 ambulatory CHRIS KILLIAN Facility:[facility] Start: 10-17-2021 End: 10-17-[address] BRIANNA MARCUS Facility:[facility] Start: 06-28-2017 End: 06-28-[address] [facility] Payers Date Payer Category Payer Unknown [id number] 1985 Unknown [id number] .[id number] [id number] 1987 Unknown [id number] 1959 Self-pay 1957 Unknown [id number] Unknown [id number] [id number] Summary Purpose Family History No Family History Records FoundNo Family History Records FoundNo Family History Records FoundNo Family History Records Found Advance Directives No Advanced Directives Records FoundNo Advanced Directives Records FoundNo Advanced Directives Records FoundNo Advanced Directives Records Found Additional Source Comments INFORMATION SOURCE (unrecogn ized section and content) DATE CREATED AUTHOR 11/26/2017 [facility] DATE CREATED AUTHOR AUTHOR'S ORGANIZ ATION 11/01/2020 [facility] DATE CREATED AUTHOR AUTHOR'S ORGANIZ ATION 01/14/2022 [facility] DATE CREATED AUTHOR AUTHOR'S ORGANIZ ATION 10/16/2023 [facility] l FOR RECORDS PERTAINING TO PATIENTS WHO ARE OR HAVE BEEN ENROLLED IN A CHEMICAL DEPENDENCY/SUBSTANCEABUSE PROGRAM, SOME INFORMATION MAY BE OMITTED. This clinical summary was aggregated from multiple sources. Caution should be exercised in using it in the provision of clinical care. This summary normalizes information from multiple sources, and as a consequence, information in this document may materially change the coding, format and clinical context of patient data. In addition, data may be omitted in some cases. CLINICAL DECISIONS SHOULD BE BASED ON THE PRIMARY CLINICAL RECORDS. [employer] provides no warranty or guarantee of the accuracy or completeness of information in this document.
[2023-12-07 07:36] LABS: Estimated Average Glucose 108 mg/dL; Glycohemoglobin A1C 5.4 % (4.5-6.2)
[2023-12-07 07:39] LABS: Basophils Percent Auto 0.5 % (0.2-2.0); Eosinophils Absolute Auto 0.1 10^3/uL (0.0-0.7); Eosinophils Percent Auto 1.9 % (0.9-7.0); Hematocrit 38.1 % (36.0-48.0); Hemoglobin 12.6 g/dL (12.0-16.0); Immature Granulocytes Abs Auto 0.01 10^3/uL (0.00-0.03); Immature Granulocytes Pct Auto 0.2 % (0.0-0.5); Lymphocytes Absolute Auto 1.9 10^3/uL (1.2-3.8); Lymphocytes Percent Auto 30.3 % (20.5-60.0); Mean Corpuscular HGB Conc 33.1 g/dL (29.9-35.2); Mean Corpuscular Hemoglobin 29.4 pg (26.7-34.0); Mean Platelet Volume 12.4 fL (9.5-13.5); Monocytes Absolute Auto 0.5 10^3/uL (0.3-0.8); Monocytes Percent Auto 8.4 % (1.7-12.0); Neutrophils Absolute Auto 3.6 10^3/uL (1.4-6.5); Neutrophils Percent Auto 58.7 % (43.0-75.0); Platelet Count 167 10^3/uL (150-450); Red Blood Count 4.28 10^6/uL (4.20-5.40); Red Cell Distribution Width 12.6 % (11.0-15.0); White Blood Count 6.2 10^3/uL (4.0-11.0)
[2023-12-07 07:46] LABS: Alanine Aminotransferase 18 U/L (14-59); Albumin Globulin Ratio 1.2; Albumin Level 4.1 g/dL (3.4-5.0); Alkaline Phosphatase 34 U/L (46-116); Anion Gap 14.6; Aspartate Amino Transferase 9 U/L (15-37); BUN Creatinine Ratio 22.4; Bilirubin Total 0.8 mg/dL (0.2-1.0); Calcium 8.5 mg/dL (8.5-10.1); Carbon Dioxide 27.3 mmol/L (21.0-32.0); Chloride 101 mmol/L (98-107); Chol HDL Ratio 2.4; Cholesterol 180 mg/dL (<=200); Estimated GFR (African America >60 (>=60); Estimated GFR (Non-African Ame >60 (>=60); Globulin 3.3 g/dL; Glucose 109 mg/dL (74-106); HDL Cholesterol 76 mg/dL (40-60); Potassium 3.9 mmol/L (3.5-5.1); Sodium 139 mmol/L (136-145); Thyroid Stimulating Hormone 1.476 uIU/mL (0.358-3.740); Total Protein 7.4 g/dL (6.4-8.2); Triglycerides 66 mg/dL (<=150); VLDL CHOLESTEROL 13.2 mg/dL
== END 2023-12-07 06:29 | disposition home or self-care (01) ==
LOC: LAB 06:30
PROVIDERS: PCP Family Medicine; Visit Provider Family Medicine
DX: Z00.00 Encounter for general adult medical examination without abnormal findings (principal)
CPT/HCPCS: 36415; 80053; 80061; 83036; 84443; 85025